=== PATIENT | female | born 1995 | race Asian ===

== ENCOUNTER 2018-10-31 22:51 | Inpatient (IN) | payer OTHER ==
[~2018-10-31] VITALS: Ht 162.6 cm; Wt 47.6 kg
--- NOTE | 2018-10-31 22:56 | NUR ---
ED Nurse Note: Pt EVELYN with [employer], from home for drug overdose. Pt took dicyclomine, tylenol and zofran in attempts to harm self after having argument with boyfriend. Pt A/Ox4, showing no signs of acute distress. VSS aside from hypotension with SBP of 81. Pt states she does not feel like harming self at the moment. Plan was to "take as many pills as possible".
[2018-10-31 22:57] VITALS: BP 81/55
[2018-10-31] MEDS ORDERED: Activated Charcoal 50gm/240ml Btl ORAL ONE (23:15)
[2018-10-31 23:21] LABS: BASOPHILS % (AUTO) 1.7 % (0.0-2.0); EOSINOPHILS % (AUTO) 1.6 % (0.0-3.0); HEMATOCRIT 38.4 % (37.0-47.0); HEMOGLOBIN 12.8 G/DL (12.0-16.0); LYMPHOCYTES % (AUTO) 42.9 % (20.0-45.0); MEAN CORPUSCULAR VOLUME 88 FL (80-99); NEUTROPHILS % (AUTO) 45.8 % (45.0-75.0); PLATELET COUNT 254 K/UL (150-450); RED BLOOD COUNT 4.37 M/UL (4.20-5.40); RED CELL DISTRIBUTION WIDTH 11.6 % (11.6-14.8); WHITE BLOOD COUNT 9.7 K/UL (4.8-10.8)
[2018-10-31 23:30] LABS: ANION GAP 12 mmol/L (5-15); BLOOD UREA NITROGEN 12 mg/dL (7-18); CALCIUM 8.6 MG/DL (8.5-10.1); CARBON DIOXIDE 21 MMOL/L (21-32); CHLORIDE 103 MMOL/L (98-107); CREATININE 0.7 MG/DL (0.55-1.30); POTASSIUM 3.3 MMOL/L (3.5-5.1); SODIUM 136 MMOL/L (136-145)
[2018-10-31 23:35] LABS: ALANINE AMINOTRANSFERASE 11 U/L (12-78); ALBUMIN 3.8 G/DL (3.4-5.0); ALKALINE PHOSPHATASE 58 U/L (46-116); ASPARTATE AMINO TRANSFERASE 20 U/L (15-37); BILIRUBIN,TOTAL 0.7 MG/DL (0.2-1.0)
[2018-11-01] MEDS ORDERED: ACETADOTE IVPB ONE ×4
[2018-11-01] MEDS ORDERED: D5W IVPB ONE ×4
--- NOTE | 2018-11-01 00:43 | NUR ---
ED Nurse Note: Pt resting comfortably. Showing no signs of acute distress. Acetadote 7500 mg running along with 2L NS.
[2018-11-01] MEDS: ACETADOTE IVPB ONE ×2 (01:23→04:44)
[2018-11-01] MEDS: D5W IVPB ONE ×2 (01:23→04:44)
--- NOTE | 2018-11-01 01:25 | NUR ---
ED Nurse Note: 2nd bag of acetadote started. Pt awake and alert. VSS.
[2018-11-01 01:34] LABS: APPEARANCE,URINE CLOUDY; BILIRUBIN, URINE NEGATIVE (NEGATIVE); COLOR,URINE RED; GLUCOSE, URINE (UA) NEGATIVE (NEGATIVE); KETONES,URINE 4+ (NEGATIVE); LEUKOCYTE ESTERASE ,URINE 2+ (NEGATIVE); NITRITE,URINE NEGATIVE (NEGATIVE); PH,URINE 5 (4.5-8.0); PROTEIN,URINE 3+ (NEGATIVE); UROBILINOGEN,URINE NORMAL MG/DL (0.0-1.0)
--- NOTE | 2018-11-01 01:58 | Emergency Room Report ---
History of Present Illness General Chief Complaint: Overdose Source: Patient Present Illness HPI This is a 23-year-old female presents with chief complaint of Tylenol overdose. She said that she's been depressed and felt suicidal. She took half a bottle of Tylenol around 6-7 PM tonight. This is around 3-4 hours prior to arrival. Denies any alcohol or drug use. Denies any homicidal thought. Denies any psychosis. She was talking to her boyfriend over the phone and he was concerned and called 911. No psychiatric history. No psychiatric admission. She had a recent elective 2 months ago. Allergies: Coded Allergies: No Known Allergies (Unverified , 10/31/18) Patient History Past Medical History: see triage record, old chart reviewed Past Surgical History: none Pertinent Family History: none Social History: Reports: smoking Last Menstrual Period: n/a Now: No Immunizations: other Reviewed Nursing Documentation: PMH: Agreed; PSxH: Agreed Review of Systems Eye: Denies: eye pain, blurred vision ENT: Denies: ear pain, nose congestion, throat swelling Respiratory: Denies: cough, shortness of breath Cardiovascular: Denies: chest pain, palpitations Gastrointestinal: Denies: abdominal pain, diarrhea, nausea, vomiting Musculoskeletal: Denies: back pain, joint pain Skin: Denies: rash Neurological: Denies: headache, numbness Endocrine: Denies: increased thirst, increased urine Hematologic/Lymphatic: Denies: easy bruising All Other Systems: negative except mentioned in HPI Physical Exam Vital Signs Date Time Temp Pulse Resp B/P (MAP) Pulse Ox O2 Delivery O2 Flow Rate FiO2 10/31/18 22:56 97.5 85 12 95 Room Air 10/31/18 22:57 81/55 vitals with hypotension. Manual blood pressure is 101/50 Sp02 EP Interpretation: reviewed, normal General Appearance: well appearing, no apparent distress, alert, thin Head: normocephalic, atraumatic Eyes: bilateral eye PERRL, bilateral eye EOMI ENT: hearing grossly normal, normal pharynx Neck: full range of motion, supple, no meningismus Respiratory: chest non-tender, lungs clear, normal breath sounds Cardiovascular #1: regular rate, rhythm, no murmur Gastrointestinal: normal bowel sounds, non tender, no mass, no organomegaly, no bruit, non-distended Musculoskeletal: back normal, gait/station normal, normal range of motion Psychiatric: depressed affect Skin: warm/dry Procedures Critical Care Time Critical Care Time Critical care is mandated in this patient who presented with Tylenol overdose. Patient require my urgent intervention to attenuate the risks of metabolic collapse which may lead to cardiovascular collapse and . Critical care time is 35 minutes excluding any reportable procedure. Critical care time included evaluation, multiple reevaluation, looking at old charts, interpreting laboratory and diagnostic data, discussing case with patient and family and consultants, and charting. Medical Decision Making Diagnostic Impression: Primary Impression: Tylenol overdose Qualified Codes: T39.1X2A - Poisoning by 4-aminophenol derivatives, intentional self-harm, initial encounter Additional Impression: UTI (urinary tract infection) Qualified Codes: N30.00 - Acute cystitis without hematuria ER Course Patient with Tylenol overdose. Unknown amount. Initial Tylenol level was elevated and potentially toxic. LFTs are normal. Second Tylenol level, 2 hours later, is trending downward. Mucomyst IV protocol is initiated. Patient is heme-negative police stable. Her blood pressure is low but manual blood pressure is on the low end of normal. I suspect this is her baseline since she is not tachycardic and has no evidence of hypoperfusion. She is talking normally. She sitting up and walking without any problem. Will admit for further monitoring. Discussed the case with Dr. Reyes for admission. Lab Results Impression labs with elevated Tylenol level EKG Diagnostic Results Rate: normal Rhythm: NSR ST Segments: no acute changes Rhythm Strip Diag. Results EP Interpretation: yes Rate: 100 Rhythm: NSR, no PVC's, no ectopy Last Vital Signs Date Time Temp Pulse Resp B/P (MAP) Pulse Ox O2 Delivery O2 Flow Rate FiO2 10/31/18 22:57 85 12 Room Air 10/31/18 22:57 97.5 81/55 95 Status: improved Disposition: ADMITTED INPATIENT Condition: Serious Referrals: NOT CHOSEN COLT/,REFERRING (PCP) Sanjiv Bagley MD November 01, 2018 01:58
[2018-11-01] MEDS ORDERED: cefTRIAXone 1 GM in NS 55 ML IVPB ONE (02:00)
--- NOTE | 2018-11-01 04:55 | NUR ---
ED Nurse Note: Pt transferred to Telemetry Unit. Report given CHIDI Carson. Pt A/Ox4, showing no signs of acute distress. Acetadote continuing to run through IV. IV patent and asymptomatic. VSS. All belongings taken with patient along with belongings list. Pt accompanied by shakila Preciado, and CHIDI.
[2018-11-01 05:00] VITALS: BP 105/70
--- NOTE | 2018-11-01 05:00 | NUR ---
NURSE NOTES: Received pt. from ED via sly. Pt. transferred to unit and bed without any incident. Received repot from CHIDI Reeder. Pt. is A/O x4. Oriented pt. to unit, room, and hospital policies. Pt. states that she is no longer feeling suicidal. 1x1 sitter at bedside. personnel monitor is in placed, IV site intact, asymptomatic, and patent. Bed is in the lowest position, locked, and alarmed. Call light within reach. Belongings list checked and accounted. Received admission orders from Dr. Reyes. Will note and carry out.
[2018-11-01 06:17] LABS: HEMATOCRIT 38.1 % (37.0-47.0); HEMOGLOBIN 12.7 G/DL (12.0-16.0); MEAN CORPUSCULAR VOLUME 87 FL (80-99); PLATELET COUNT 205 K/UL (150-450); RED BLOOD COUNT 4.37 M/UL (4.20-5.40); RED CELL DISTRIBUTION WIDTH 11.2 % (11.6-14.8); WHITE BLOOD COUNT 10.3 K/UL (4.8-10.8)
[2018-11-01 06:40] LABS: ALANINE AMINOTRANSFERASE 11 U/L (12-78); ALBUMIN 3.5 G/DL (3.4-5.0); ALKALINE PHOSPHATASE 51 U/L (46-116); ANION GAP 13 mmol/L (5-15); ASPARTATE AMINO TRANSFERASE 17 U/L (15-37); BILIRUBIN,TOTAL 0.6 MG/DL (0.2-1.0); BLOOD UREA NITROGEN 5 mg/dL (7-18); CALCIUM 7.9 MG/DL (8.5-10.1); CARBON DIOXIDE 21 MMOL/L (21-32); CHLORIDE 102 MMOL/L (98-107); CREATININE 0.7 MG/DL (0.55-1.30); POTASSIUM 3.4 MMOL/L (3.5-5.1); SODIUM 136 MMOL/L (136-145)
[2018-11-01 08:00] VITALS: BP 120/77
--- NOTE | 2018-11-01 08:12 | NUR ---
HAND-OFF: Report given to CHIDI Lord.
--- NOTE | 2018-11-01 08:20 | NUR ---
NURSE NOTES: Contacted Dr. Reyes regarding psych consult. Will await call back.
--- NOTE | 2018-11-01 08:45 | NUR ---
NURSE NOTES: Received report from CHIDI Carson. Pt is sitting up in bed with sitter at bedside. Bed is in lowest position, side rails up X2, and call light is within reach. Will continue to monitor.
--- NOTE | 2018-11-01 09:14 | General Progress Note ---
Assessment/Plan Problem List: (1) Tylenol overdose ICD Codes: T39.1X1A - Poisoning by 4-Aminophenol derivatives, accidental ( unintentional), initial encounter SNOMED: 545400695 Qualifiers: Qualified Codes: T39.1X2A - Poisoning by 4-aminophenol derivatives, intentional self-harm, initial encounter Assessment/Plan: no elevated lfts s/p mucomyst on reg diet fu psych Subjective ROS Limited/Unobtainable: Yes Allergies: Coded Allergies: No Known Allergies (Unverified , 10/31/18) Objective Last 24 Hour Vital Signs Date Time Temp Pulse Resp B/P (MAP) Pulse Ox O2 Delivery O2 Flow Rate FiO2 11/01/18 05:01 Room Air 11/01/18 05:00 97.8 95 18 105/70 (82) 100 11/01/18 05:00 99 11/01/18 04:55 98.3 94 26 90/56 99 10/31/18 22:57 85 12 Room Air 10/31/18 22:57 97.5 81 12 81/55 95 Room Air 10/31/18 22:56 97.5 85 12 95 Room Air Intake and Output 10/31/18 11/01/18 19:00 07:00 Intake Total 2292.5 ml Balance 2292.5 ml Intake IV Total 2292.5 ml # Voids 1 Laboratory Tests 10/31/18 23:00: White Blood Count 9.7, Red Blood Count 4.37, Hemoglobin 12.8, Hematocrit 38.4, Mean Corpuscular Volume 88, Mean Corpuscular Hemoglobin 29.2, Mean Corpuscular Hemoglobin Concent 33.3, Red Cell Distribution Width 11.6, Platelet Count 254, Mean Platelet Volume 8.7, Neutrophils (%) (Auto) 45.8, Lymphocytes (%) (Auto) 42.9, Monocytes (%) (Auto) 8.0, Eosinophils (%) (Auto) 1.6, Basophils (%) (Auto ) 1.7, Sodium Level 136, Potassium Level 3.3L, Chloride Level 103, Carbon Dioxide Level 21, Anion Gap 12, Blood Urea Nitrogen 12, Creatinine 0.7, Estimat Glomerular Filtration Rate > 60, Glucose Level 177H, Calcium Level 8.6, Total Bilirubin 0.7, Aspartate Amino Transf (AST/SGOT) 20, Alanine Aminotransferase ( ALT/SGPT) 11L, Alkaline Phosphatase 58, Total Protein 7.5, Albumin 3.8, Globulin 3.7, Albumin/Globulin Ratio 1.0, Salicylates Level 0.6L, Acetaminophen Level 177H, Serum Alcohol < 3 11/01/18 01:15: Urine Color Red, Urine Appearance Cloudy, Urine pH 5, Urine Specific [place] 1.025, Urine Protein 3+H, Urine Glucose (UA) Negative, Urine Ketones 4+H, Urine Blood 5+H, Urine Nitrite Negative, Urine Bilirubin Negative, Urine Urobilinogen Normal, Urine Leukocyte Esterase 2+H, Urine RBC TntcH, Urine WBC 5-10H, Urine Squamous Epithelial Cells Few, Urine Bacteria Few, Urine Mucus Occasional, Urine HCG, Qualitative Negative, Urine Opiates Screen Negative, Urine Barbiturates Screen Negative, Phencyclidine (PCP) Screen Negative, Urine Amphetamines Screen Negative, Urine Benzodiazepines Screen Negative, Urine Cocaine Screen Negative, Urine Marijuana (THC) Screen Negative 11/01/18 01:36: Acetaminophen Level 162H 11/01/18 06:10: White Blood Count 10.3, Red Blood Count 4.37, Hemoglobin 12.7, Hematocrit 38.1, Mean Corpuscular Volume 87, Mean Corpuscular Hemoglobin 29.2, Mean Corpuscular Hemoglobin Concent 33.4, Red Cell Distribution Width 11.2L, Platelet Count 205, Mean Platelet Volume 8.5, Neutrophils (%) (Auto) , Lymphocytes (%) (Auto) , Monocytes (%) (Auto) , Eosinophils (%) (Auto) , Basophils (%) (Auto) , Sodium Level 136, Potassium Level 3.4L, Chloride Level 102, Carbon Dioxide Level 21, Anion Gap 13, Blood Urea Nitrogen 5L, Creatinine 0.7, Estimat Glomerular Filtration Rate > 60, Glucose Level 157H, Calcium Level 7.9L, Total Bilirubin 0.6, Aspartate Amino Transf (AST/SGOT) 17, Alanine Aminotransferase (ALT/SGPT) 11L, Alkaline Phosphatase 51, Total Protein 7.1, Albumin 3.5, Globulin 3.6, Albumin/Globulin Ratio 1.0, Neutrophils % (Manual) [Pending], Lymphocytes % ( Manual) [Pending], Platelet Estimate [Pending], Platelet Morphology [Pending] Height (Feet): 5 Height (Inches): 4.00 Weight (Pounds): 105 General Appearance: alert EENT: normal ENT inspection Neck: supple Cardiovascular: normal rate Respiratory/Chest: lungs clear Abdomen: normal bowel sounds, non tender, soft Extremities: normal range of motion, non-tender Calos Clayton MD November 01, 2018 09:14
--- NOTE | 2018-11-01 10:30 | NUR ---
Social Service Note SW met with patient to assess for suicidal ideations. Patient is from [facility] and here on a student visa studying at [employer]. Patient is alert, oriented and verbally responsive. Patient stated she felt comfortable communicating in Kiswahili. Patient states has had multiple arguments with her boyfriend which has made her depressed. Patient states her boyfriends parents are not accepting of her because she is [place]. Also recently she had an because her boyfriend wouldn't support and she was ashamed to tell her family. Patient states she has been feeling emotional and acted out of haste yesterday. Patient denies mental health history. Patient denies suicidal ideations and feelings to self harm. Patient states her boyfriend called 911 after telling him she took Tylenol. Patient states she realizes this behavior will not help their relationship and that they might not need to be together any longer. SW provided emotional support. Patient states she notified her mother in [place] that she was in the hospital. Patient states she has international travellers insurance and also pays for medical assistance on campus. Mental Health resources will be provided. Patient is pending psychiatric evaluation. Patient states she will return to an apartment she shares with a roommate. Patient provided SW the contact number of a family friend Sameera Benavidez, . Will continue to monitor and assist as needed.
--- NOTE | 2018-11-01 10:39 | NUR ---
NURSE NOTES: Dr. Reyes asked that we consult Dr. Escobar for the case. Orders noted and carried out
--- NOTE | 2018-11-01 10:45 | Consultation ---
Consult Note Consult Note 23 y old- from [place] ER note- This is a 23-year-old female presents with chief complaint of Tylenol overdose. She said that she's been depressed and felt suicidal. She took half a bottle of Tylenol around 6-7 PM tonight. This is around 3-4 hours prior to arrival. Denies any alcohol or drug use. Denies any homicidal thought. Denies any psychosis. She was talking to her boyfriend over the phone and he was concerned and called 911. No psychiatric history. No psychiatric admission. She had a recent elective 2 months ago. Allergies: Coded Allergies: No Known Allergies (Unverified , 10/31/18) examined data reviewed alert oriented NAD Assessment/Plan Tylenol OD UTI no elevated LFTs Per Psych Monitor LFTs Hydrate Monitor tylenol level per orders Jeremy Saini MD November 01, 2018 10:45
[2018-11-01 12:00] VITALS: BP 126/80
[2018-11-01] MEDS: Docusate 100mg cap ORAL SCH ×2 (13:21→17:31)
--- NOTE | 2018-11-01 15:33 | NUR ---
CASE MANAGEMENT:REVIEW 23 YR OLD FEMALE BIBA FROM HOME CC; OVERDOSE OF TYLENOL,DICYCLOMINE AND ZOFRAN SI: TYLENOL OVERDOSE. UTI 97.5 85 12 81/55 95% ON RA K-3.3 TYLENOL LEVEL+177 IS: IV ZOFRAN ACTIVATED CHARCOAL IV ACETADOTE X2 IV ROCEPHIN 1L NS BOLUS X2 : TO TELEMETRY INTERQUAL CRITERIA MET
[2018-11-01 16:00] VITALS: BP 121/80
--- NOTE | 2018-11-01 17:30 | Cardiology Report ---
APPROVED REPORT EKG Measurement Heart [id number] HI [id number] Normal sinus rhythm Possible Left atrial enlargement Borderline ECG
--- NOTE | 2018-11-01 19:28 | NUR ---
HAND-OFF: Report given to CHIDI Hurley. Plan of care endorsed.
--- NOTE | 2018-11-01 19:36 | NUR ---
NURSE NOTES: patient received. patient in no acute distress at this time. patient complains of no pain at this time. patietn awake alert and oriented x4. family and sitter at bedside. IV intact patent and asymptomatic. patient ambulatory with steady gait. bed in lowest position and locked. call light within reach. will continue to monitor.
[2018-11-01 20:00] VITALS: BP 102/70
[2018-11-02] VITALS (7 sets, daily range): BP systolic 88–109; BP diastolic 57–69
--- NOTE | 2018-11-02 03:35 | NUR ---
NURSE NOTES: sitter at bed side. patient is resting. patient vitals are stable and patient is sinus rhythm. patient IV still running D5NS with KCL. patient stable and ambulates to the bathroom. will continue to monitor.
--- NOTE | 2018-11-02 05:00 | History and Physical Report ---
DATE OF ADMISSION: 11/01/2018 HISTORY OF PRESENT ILLNESS: The patient is a 23-year-old female admitted for Tylenol overdose. She reported that she took about 50 pills last night and does not know the dosages for the intention of overdose. LFTs were normal, 4-hour level was 157, 6-hour level was 162. The patient was started on Mucomyst protocol by the ER physician. The patient currently denies nausea, vomiting, diarrhea, fever, chills, or abdominal pain. No shortness of breath or cough. PAST MEDICAL HISTORY: History of depression. PAST SURGICAL HISTORY: None. ALLERGIES: None. MEDICATIONS: None. FAMILY HISTORY: Noncontributory. SOCIAL HISTORY: No history of smoking, alcohol, or illicit drugs. REVIEW OF SYSTEMS: HEENT: Denies headaches. RESPIRATORY: Denies shortness of breath. Denies cough. CARDIOVASCULAR: Denies chest pain. GASTROINTESTINAL: Denies nausea, vomiting, or diarrhea. EXTREMITIES: Denies pain. CENTRAL NERVOUS SYSTEM: Denies change in vision or speech pattern. PHYSICAL EXAMINATION: VITAL SIGNS: Temperature 97.2, pulse , and blood pressure 130/70. HEENT: PERRLA. NECK: Supple. No lymphadenopathy. CHEST: Clear to auscultation. CARDIOVASCULAR: Regular rate and rhythm. No murmurs at this time. GASTROINTESTINAL: Soft, nontender,and nondistended. No organomegaly. EXTREMITIES: No edema. Reflexes in both sides. Moves all four extremities. LABORATORY STUDIES: WBC of 9.7 and hemoglobin . Sodium 137, potassium 3.3, BUN of 12, creatinine 0.7, and glucose of 177. Tylenol level initially was 177, repeat level went down to 62. . ASSESSMENT AND PLAN: Tylenol overdose, one-to-one sitter has been ordered as well as Dr. Saini, Dr. Escobar, and Dr. Isabel have been consulted for the Tylenol overdose to rule out any other abnormality as well as for management of the and Dr. Escobar for the depression and overdose has been consulted and been ordered. Katie Reyes M.D. DR: GRIFFIN JOB#: [id number] CC:
--- NOTE | 2018-11-02 05:00 | Consultation ---
DATE OF CONSULTATION: 11/01/2018 HISTORY OF PRESENT ILLNESS: The patient is a 23-year-old [place] woman who has no psychiatric history according to herself, was admitted last night after she overdosed on Tylenol. The suicide attempt was in the context of an she just had. and breakup with her boyfriend. The patient denies any suicidal ideation. The patient states that now she is not endorsing any suicidal ideation. She believes her family and friends do care for her. The patient goes to [employer] and has a roommate. Target symptoms include depressed mood, worthlessness, anxiety. No suicidal or homicidal ideations. No psychotic or manic symptoms. PAST PSYCHIATRIC HISTORY: The patient denies any psychiatric hospitalization. No suicide attempt. PAST MEDICAL HISTORY: None. She is currently status post Tylenol overdose and UTI. SUBSTANCE ABUSE HISTORY: No history of illicit drug use or alcohol. MENTAL STATUS EXAMINATION: The patient is alert and oriented times self, place, and situation she is in. Mood is depressed. Affect is constricted. Congruent mood. Thought process linear. Thought content, no suicidal or homicidal ideation. No psychotic symptoms. ASSESSMENT: AXIS I: Adjustment disorder. AXIS II: Deferred. AXIS III: As above. AXIS IV: Low. AXIS V: 50. PLAN: 1. We will start the patient on Remeron as needed for insomnia. 2. Start the patient on Zoloft 50 mg in the morning. 3. the patient is not imminent danger to self or others. The patient may be discharged home after medically cleared. Estefany Escobar M.D. DR: Carissa JOB#: [id number] CC:
[2018-11-02 06:22] LABS: BASOPHILS % (AUTO) 1.7 % (0.0-2.0); EOSINOPHILS % (AUTO) 1.8 % (0.0-3.0); HEMATOCRIT 35.3 % (37.0-47.0); HEMOGLOBIN 11.8 G/DL (12.0-16.0); LYMPHOCYTES % (AUTO) 39.6 % (20.0-45.0); MEAN CORPUSCULAR VOLUME 88 FL (80-99); MONOCYTES % (AUTO) 7.7 % (1.0-10.0); NEUTROPHILS % (AUTO) 49.2 % (45.0-75.0); PLATELET COUNT 205 K/UL (150-450); RED CELL DISTRIBUTION WIDTH 11.9 % (11.6-14.8); WHITE BLOOD COUNT 6.4 K/UL (4.8-10.8)
--- NOTE | 2018-11-02 06:30 | NUR ---
NURSE NOTES: patients blood pressure a little low. we sat patient up. charge nurse informed. will recheck in half hour.
[2018-11-02 06:39] LABS: ALANINE AMINOTRANSFERASE 10 U/L (12-78); ALBUMIN 3.1 G/DL (3.4-5.0); ALKALINE PHOSPHATASE 56 U/L (46-116); ANION GAP 8 mmol/L (5-15); ASPARTATE AMINO TRANSFERASE 14 U/L (15-37); BILIRUBIN,TOTAL 0.2 MG/DL (0.2-1.0); BLOOD UREA NITROGEN 4 mg/dL (7-18); CALCIUM 8.3 MG/DL (8.5-10.1); CARBON DIOXIDE 25 MMOL/L (21-32); CHLORIDE 111 MMOL/L (98-107); CREATININE 0.7 MG/DL (0.55-1.30); GAMMA GLUTAMYL TRANSPEPTIDASE 9 U/L (5-85); PHOSPHORUS 2.8 MG/DL (2.5-4.9); POTASSIUM 3.6 MMOL/L (3.5-5.1); SODIUM 144 MMOL/L (136-145)
--- NOTE | 2018-11-02 07:00 | NUR ---
NURSE NOTES: patients blood pressure rechecked and is trending upwards. informed day shift nurse and charge nurse aware. sitter at bedside.
--- NOTE | 2018-11-02 07:05 | NUR ---
HAND-OFF: Report given to marixa meyer. patient vitals and labs stable.
--- NOTE | 2018-11-02 07:23 | NUR ---
NURSE NOTES: Received report from CHIDI Fuentes. Pt is sitting up in bed. Sitter is at bedside. Contacted Dr. Reyes for clarification of orders for sitter. Bed is in lowest position, side rails up X2, and call light is within reach. Will continue to monitor.
--- NOTE | 2018-11-02 08:17 | NUR ---
NURSE NOTES: I spoke with patient about how she is feelings. She started crying and stated that her boyfriend broke up with her last night. I asked her if she wanted to hurt herself. She said "no, I don't". Contacted Dr. Escobar to inform her what i discussed with the sitter and that I believe she should remain with sitter as she still appears sad and distant. Dr. Escobar asked if pt was suicidal? I informed her that patient said "no" but that the patient appeared to be sad. Per Dr. Escobar, pt is stable and not suicidal. "okay" to DC sitter. Informed Charge Nurse of DC order.
[2018-11-02] MEDS: Sertraline 50mg tab ORAL SCH (09:00)
[2018-11-02] MEDS: Docusate 100mg cap ORAL SCH ×3 (09:00→17:03)
--- NOTE | 2018-11-02 09:25 | General Progress Note ---
Assessment/Plan Problem List: (1) Tylenol overdose ICD Codes: T39.1X1A - Poisoning by 4-Aminophenol derivatives, accidental ( unintentional), initial encounter SNOMED: [id number] Qualifiers: Qualified Codes: T39.1X2A - Poisoning by 4-aminophenol derivatives, intentional self-harm, initial encounter Assessment/Plan: no elevated lfts s/p Mucomyst on reg diet fu psych Subjective ROS Limited/Unobtainable: Yes Allergies: Coded Allergies: No Known Allergies (Unverified , 10/31/18) Objective Last 24 Hour Vital Signs Date Time Temp Pulse Resp B/P (MAP) Pulse Ox O2 Delivery O2 Flow Rate FiO2 11/02/18 08:00 97.3 71 22 92/59 (70) 11/02/18 08:00 87 11/02/18 06:59 93/59 (70) 11/02/18 06:00 97.4 70 18 88/57 (67) 98 11/02/18 04:00 67 11/02/18 00:00 97.2 88 18 103/68 (80) 98 11/02/18 00:00 72 11/01/18 21:00 Room Air 11/01/18 20:00 98.9 82 18 102/70 (81) 97 11/01/18 20:00 81 11/01/18 16:00 74 11/01/18 16:00 98.0 90 18 121/80 (94) 96 11/01/18 12:00 98.7 82 18 126/80 (95) 96 11/01/18 12:00 62 Intake and Output 11/01/18 11/02/18 18:59 06:59 Intake Total 1000 ml 300 ml Balance 1000 ml 300 ml Intake Oral 1000 ml 300 ml # Voids 5 # Bowel Movements 1 1 Laboratory Tests 11/02/18 05:50: White Blood Count 6.4, Red Blood Count 4.00L, Hemoglobin 11.8L, Hematocrit 35.3L , Mean Corpuscular Volume 88, Mean Corpuscular Hemoglobin 29.6, Mean Corpuscular Hemoglobin Concent 33.5, Red Cell Distribution Width 11.9, Platelet Count 205, Mean Platelet Volume 9.5, Neutrophils (%) (Auto) 49.2, Lymphocytes (% ) (Auto) 39.6, Monocytes (%) (Auto) 7.7, Eosinophils (%) (Auto) 1.8, Basophils ( %) (Auto) 1.7, Sodium Level 144, Potassium Level 3.6, Chloride Level 111H, Carbon Dioxide Level 25, Anion Gap 8, Blood Urea Nitrogen 4L, Creatinine 0.7, Estimat Glomerular Filtration Rate > 60, Glucose Level 105, Uric Acid 2.5L, Calcium Level 8.3L, Phosphorus Level 2.8, Magnesium Level 2.0, Total Bilirubin 0.2, Gamma Glutamyl Transpeptidase 9, Aspartate Amino Transf (AST/SGOT) 14L, Alanine Aminotransferase (ALT/SGPT) 10L, Alkaline Phosphatase 56, Total Protein 6.3L, Albumin 3.1L, Globulin 3.2, Albumin/Globulin Ratio 1.0, Acetaminophen Level < 2L Height (Feet): 5 Height (Inches): 4.00 Weight (Pounds): 105 General Appearance: alert Neck: supple Cardiovascular: normal rate Respiratory/Chest: decreased breath sounds Abdomen: normal bowel sounds, non tender, soft Extremities: non-tender Calos Clayton MD November 02, 2018 09:25
--- NOTE | 2018-11-02 12:27 | NUR ---
CASE MANAGEMENT:REVIEW 11/02/18 SI: OVERDOSE 97.3 71 22 92/59 98% ON RA IS: IVF@75/HR ZOLOFT PO QD PROTONIX PO Q12 COLACE PO TID : TELEMETRY STATUS
--- NOTE | 2018-11-02 13:15 | NUR ---
RD ASSESSMENT & RECOMMENDATIONS SEE CARE ACTIVITY FOR COMPLETE ASSESSMENT DAILY ESTIMATED NEEDS: Needs based on Underweight 47.6kg 25-35 kcals/kg 1056-2291 total kcals .8-1.2 g protein/kg 48-57 g total protein 25-30 mL/kg 9499-9188 total fluid mLs NUTRITION DIAGNOSIS: Increased kcal needs r/t underweight status as evidenced by pt is <90% of [place] body Weight, BMI underweight per guidelines. CURRENT DIET: Regular ms chopped PO DIET RECOMMENDATIONS: REGULAR diet (texture per [employer]) ----- ADDITIONAL RECOMMENDATIONS: 1) Obtain a standing Ht and Wt as able 2) [employer] eval for appropriate texture -> Currently on MS chopped texture 3) Monitor/ trend BG -> adm w/ elev BG 4) Snacks in b/w meals
--- NOTE | 2018-11-02 14:58 | Nephrology Progress Note ---
Assessment/Plan Problem List: (1) UTI (urinary tract infection) (2) Tylenol overdose Assessment Tylenol OD levels now below 2 UTI no elevated LFTs Plan Per Psych stable from my stand for DC will follow as needed urine cultures pending Subjective ROS Limited/Unobtainable: No Objective Objective Last 24 Hour Vital Signs Date Time Temp Pulse Resp B/P (MAP) Pulse Ox O2 Delivery O2 Flow Rate FiO2 11/02/18 12:00 97.9 68 21 109/64 (79) 11/02/18 12:00 74 11/02/18 09:00 Room Air 11/02/18 08:00 97.3 71 22 92/59 (70) 11/02/18 08:00 87 11/02/18 06:59 93/59 (70) 11/02/18 06:00 97.4 70 18 88/57 (67) 98 11/02/18 04:00 67 11/02/18 00:00 97.2 88 18 103/68 (80) 98 11/02/18 00:00 72 11/01/18 21:00 Room Air 11/01/18 20:00 98.9 82 18 102/70 (81) 97 11/01/18 20:00 81 11/01/18 16:00 74 11/01/18 16:00 98.0 90 18 121/80 (94) 96 Intake and Output 11/01/18 11/02/18 19:00 07:00 Intake Total 1000 ml 300 ml Balance 1000 ml 300 ml Intake Oral 1000 ml 300 ml # Voids 5 # Bowel Movements 1 1 Laboratory Tests 11/02/18 05:50: White Blood Count 6.4, Red Blood Count 4.00L, Hemoglobin 11.8L, Hematocrit 35.3L , Mean Corpuscular Volume 88, Mean Corpuscular Hemoglobin 29.6, Mean Corpuscular Hemoglobin Concent 33.5, Red Cell Distribution Width 11.9, Platelet Count 205, Mean Platelet Volume 9.5, Neutrophils (%) (Auto) 49.2, Lymphocytes (% ) (Auto) 39.6, Monocytes (%) (Auto) 7.7, Eosinophils (%) (Auto) 1.8, Basophils ( %) (Auto) 1.7, Sodium Level 144, Potassium Level 3.6, Chloride Level 111H, Carbon Dioxide Level 25, Anion Gap 8, Blood Urea Nitrogen 4L, Creatinine 0.7, Estimat Glomerular Filtration Rate > 60, Glucose Level 105, Uric Acid 2.5L, Calcium Level 8.3L, Phosphorus Level 2.8, Magnesium Level 2.0, Total Bilirubin 0.2, Gamma Glutamyl Transpeptidase 9, Aspartate Amino Transf (AST/SGOT) 14L, Alanine Aminotransferase (ALT/SGPT) 10L, Alkaline Phosphatase 56, Total Protein 6.3L, Albumin 3.1L, Globulin 3.2, Albumin/Globulin Ratio 1.0, Acetaminophen Level < 2L Height (Feet): 5 Height (Inches): 4.00 Weight (Pounds): 105 General Appearance: no apparent distress Objective wnl Jeermy Saini MD November 02, 2018 14:58
--- NOTE | 2018-11-02 16:17 | NUR ---
*-* INSURANCE *-* ALL CLINICALS AND REVIEWS HAVE BEEN FAXED TO: [facility] F:[phone]
--- NOTE | 2018-11-02 19:15 | NUR ---
NURSE NOTES: Pt report received from Risa MURILLO. pt appears to be in stable condition as she is resting comfortably in bed using her lap top. Pt is alert and oriented times 4. Pt has a classroom monitor placed active active and working. no signs or symptoms of acute cardiac distress noted. Pt is saturating at 99% on room air. no signs or symptoms of acute respiratory distress noted. Pt has a R AC 20 G able to flush with no complications noted. Pt is instructed to use the call light for any type of assistance. Pt has side rails up times 2. [employer] TEAM LEADER and RN will make hourly roundings to monitor for further complications. Will continue plan of care.
--- NOTE | 2018-11-02 19:41 | NUR ---
HAND-OFF: Report given to marixa Sherman. Plan of care endosed.
--- NOTE | 2018-11-02 21:20 | General Progress Note ---
Assessment/Plan Problem List: (1) Tylenol overdose ICD Codes: T39.1X1A - Poisoning by 4-Aminophenol derivatives, accidental ( unintentional), initial encounter SNOMED: 229356113 Qualifiers: Qualified Codes: T39.1X2A - Poisoning by 4-aminophenol derivatives, intentional self-harm, initial encounter Status: progressing Assessment/Plan: suicide attempt tylenol o/d Subjective ROS Limited/Unobtainable: Yes Allergies: Coded Allergies: No Known Allergies (Unverified , 10/31/18) Objective Last 24 Hour Vital Signs Date Time Temp Pulse Resp B/P (MAP) Pulse Ox O2 Delivery O2 Flow Rate FiO2 11/02/18 16:00 98.1 76 18 109/59 (76) 11/02/18 16:00 79 11/02/18 12:00 97.9 68 21 109/64 (79) 11/02/18 12:00 74 11/02/18 09:00 Room Air 11/02/18 08:00 97.3 71 22 92/59 (70) 11/02/18 08:00 87 11/02/18 06:59 93/59 (70) 11/02/18 06:00 97.4 70 18 88/57 (67) 98 11/02/18 04:00 67 11/02/18 00:00 97.2 88 18 103/68 (80) 98 11/02/18 00:00 72 Intake and Output 11/01/18 11/02/18 19:00 07:00 Intake Total 1000 ml 300 ml Balance 1000 ml 300 ml Intake Oral 1000 ml 300 ml # Voids 5 # Bowel Movements 1 1 Laboratory Tests 11/02/18 05:50: White Blood Count 6.4, Red Blood Count 4.00L, Hemoglobin 11.8L, Hematocrit 35.3L , Mean Corpuscular Volume 88, Mean Corpuscular Hemoglobin 29.6, Mean Corpuscular Hemoglobin Concent 33.5, Red Cell Distribution Width 11.9, Platelet Count 205, Mean Platelet Volume 9.5, Neutrophils (%) (Auto) 49.2, Lymphocytes (% ) (Auto) 39.6, Monocytes (%) (Auto) 7.7, Eosinophils (%) (Auto) 1.8, Basophils ( %) (Auto) 1.7, Sodium Level 144, Potassium Level 3.6, Chloride Level 111H, Carbon Dioxide Level 25, Anion Gap 8, Blood Urea Nitrogen 4L, Creatinine 0.7, Estimat Glomerular Filtration Rate > 60, Glucose Level 105, Uric Acid 2.5L, Calcium Level 8.3L, Phosphorus Level 2.8, Magnesium Level 2.0, Total Bilirubin 0.2, Gamma Glutamyl Transpeptidase 9, Aspartate Amino Transf (AST/SGOT) 14L, Alanine Aminotransferase (ALT/SGPT) 10L, Alkaline Phosphatase 56, Total Protein 6.3L, Albumin 3.1L, Globulin 3.2, Albumin/Globulin Ratio 1.0, Acetaminophen Level < 2L Height (Feet): 5 Height (Inches): 4.00 Weight (Pounds): 105 Cardiovascular: normal rate Respiratory/Chest: lungs clear Abdomen: soft Katie Reyes MD November 02, 2018 21:20
--- NOTE | 2018-11-02 23:00 | Progress Note ---
DATE: 11/02/2018 SUBJECTIVE: The patient is doing well. The patient was tearful today as her ex-boyfriend came to the hospital and officially broke out with her. The patient is not endorsing any suicidal or homicidal ideation. The patient would like to be discharged home and is reluctant to go to a psychiatric facility. The patient has a good support system outside of the hospital. She is not an imminent danger to self or others. The patient stated that she did not take the Tylenol to end her life. The patient was discussed about getting professional help and see a psychologist after the discharge. She is reluctant to see a psychiatrist or take psychotropic medications. She does not believe that she has mental illness. We discussed borderline personality. MENTAL STATUS EXAMINATION: The patient is alert and oriented x4, cooperative, calmer today. No psychomotor agitation or retardation. Mood is neutral. Affect is blunted, congruent with mood. Thought content, no suicidal or homicidal ideation. Insight and judgment is fair. ASSESSMENT: AXIS I: Adjustment disorder. AXIS II: Borderline personality traits. AXIS III: Status post Tylenol overdose. AXIS IV: Low to moderate. AXIS V: 50. PLAN: The patient may be discharged after medically cleared. The patient is not an imminent danger to self or others. The patient is reluctant to take any psychotropic medication. Referral to mental health was given. Estefany Escobar M.D. DR: Carissa JOB#: [id number] CC:
[2018-11-03] VITALS: BP 103/64
[2018-11-03 04:00] VITALS: BP 104/61
--- NOTE | 2018-11-03 07:30 | NUR ---
HAND-OFF: Report given to Namita MURILLO.
--- NOTE | 2018-11-03 07:35 | NUR ---
NURSE NOTES: MD Doss called, stated to have PT DC when MD Escobar and MD Nix clear Pt. DC [facility], Continue Home Meds.
--- NOTE | 2018-11-03 07:50 | NUR ---
NURSE NOTES: Report received from CHIDI Sherman. Observed patient in bed. Awake and verbally responsive. Denies pain at this time. No distress noted in room air. IV site intact and patent. Bed in lowest position. Call light within reach. Will continue to monitor.
[2018-11-03 08:00] VITALS: BP 95/61
[2018-11-03] MEDS: Docusate 100mg cap ORAL SCH ×2 (08:27→13:00)
[2018-11-03] MEDS: Sertraline 50mg tab ORAL SCH (08:27)
--- NOTE | 2018-11-03 09:03 | NUR ---
CASE MANAGEMENT:REVIEW 11/03/18 SI: OVERDOSE 98.8 83 20 95/61 100% ON RA IS: ZOLOFT PO QD PROTONIX PO Q12 COLACE PO TID : TELEMETRY STATUS DCP: FROM HOME PLAN: DISCHARGE IF CLEARED BY PSYCH AND CARDIO CONTINUE HOSPITAL MEDS UPON DISCHARGE
--- NOTE | 2018-11-03 09:29 | NUR ---
*-* INSURANCE *-* UPDATED CLINICALS REVIEWS HAVE BEEN FAXED TO: [facility] F:[phone]
--- NOTE | 2018-11-03 09:37 | GI Progress Note ---
Assessment/Plan Problems: (1) Tylenol overdose ICD Codes: T39.1X1A - Poisoning by 4-Aminophenol derivatives, accidental ( unintentional), initial encounter SNOMED: [id number] Qualifiers: Qualified Codes: T39.1X2A - Poisoning by 4-aminophenol derivatives, intentional self-harm, initial encounter Status: stable Status Narrative Discussed with Dr. Clayton Assessment/Plan okay for DC per GI standpoint no elevated lfts s/p Mucomyst on reg diet fu psych The patient was seen and examined at bedside and all new and available data was reviewed in the patients chart. I agree with the above findings, impression and plan. (Patient seen earlier today. Signature stamp does not reflect patient encounter time.). - Calos Clayton MD Subjective Gastrointestinal/Abdominal: Reports: no symptoms Subjective Denies any abdominal pain Denies any nausea vomiting Objective Last 24 Hour Vital Signs Date Time Temp Pulse Resp B/P (MAP) Pulse Ox O2 Delivery O2 Flow Rate FiO2 11/03/18 09:00 Room Air 11/03/18 08:00 98.8 83 20 95/61 (72) 100 11/03/18 04:00 61 11/03/18 04:00 98.1 75 18 104/61 (75) 99 11/03/18 00:00 98.5 69 18 103/64 (77) 99 11/03/18 00:00 86 11/02/18 21:00 Room Air 11/02/18 20:00 85 11/02/18 20:00 97.9 76 18 108/69 (82) 99 11/02/18 16:00 98.1 76 18 109/59 (76) 11/02/18 16:00 79 11/02/18 12:00 97.9 68 21 109/64 (79) 11/02/18 12:00 74 Intake and Output 11/02/18 11/03/18 18:59 06:59 # Voids 2 # Bowel Movements 1 1 Height (Feet): 5 Height (Inches): 4.00 Weight (Pounds): 105 General Appearance: WD/WN, no apparent distress, alert Cardiovascular: normal rate Respiratory/Chest: normal breath sounds, no respiratory distress Abdominal Exam: normal bowel sounds, non tender, soft Extremities: normal range of motion, non-tender Robert Bagley HEAD FILTER TANK TENDER HELPER November 03, 2018 09:36
--- NOTE | 2018-11-03 11:39 | Cardiac Electrophysiology PN ---
Subjective Subjective [id number] Objective Last 24 Hour Vital Signs Date Time Temp Pulse Resp B/P (MAP) Pulse Ox O2 Delivery O2 Flow Rate FiO2 11/03/18 09:00 Room Air 11/03/18 08:00 83 11/03/18 08:00 98.8 83 20 95/61 (72) 100 11/03/18 04:00 61 11/03/18 04:00 98.1 75 18 104/61 (75) 99 11/03/18 00:00 98.5 69 18 103/64 (77) 99 11/03/18 00:00 86 11/02/18 21:00 Room Air 11/02/18 20:00 85 11/02/18 20:00 97.9 76 18 108/69 (82) 99 11/02/18 16:00 98.1 76 18 109/59 (76) 11/02/18 16:00 79 11/02/18 12:00 97.9 68 21 109/64 (79) 11/02/18 12:00 74 Intake and Output 11/02/18 11/03/18 18:59 06:59 # Voids 2 # Bowel Movements 1 1 Hayden Nix MD November 03, 2018 11:39
[2018-11-03 11:50] VITALS: BP 103/64
--- NOTE | 2018-11-03 13:19 | NUR ---
NURSE NOTES: Patient discharged to home via private vehicle by herself. Patient is alert and oriented x 4 and verbally responsive. Denies pain at this time. Belongings checked with patient. No skin problems noted. All discharge instructions given to patient with verbalized understanding. patient care specialist, IV site, and ID band removed prior to discharge. Patient is ambulatory with steady gait. Escorted the patient to down stairs. Stable condition.
--- NOTE | 2018-11-03 18:45 | Consultation ---
DATE OF CONSULTATION: 11/03/2018 CARDIOLOGY CONSULTATION: CONSULTING PHYSICIAN: Hayden Nix M.D. REFERRING PHYSICIAN: Katie Reyes M.D. REASON FOR CONSULTATION: Episodes of Wenckebach. HISTORY OF PRESENT ILLNESS: The patient is a 23-year-old lady who was depressed and felt suicidal and had a half bottle of Tylenol around 6 or 7 p.m. This was 3 to 4 hours prior to arrival. She was talking to her boyfriend over the phone and he got concerned and called 911. There is no prior history of psychiatric history and had an elective 2 months ago. The patient was admitted on telemetry, had episodes of bradycardia due to Mobitz type 1 Wenckebach. Cardiac electrophysiology consultation for further evaluation and management. REVIEW OF SYSTEMS: Negative other than what was mentioned in history of present illness. PAST MEDICAL HISTORY: As mentioned above. FAMILY HISTORY: Noncontributory. SOCIAL HISTORY: She lives at home. Does not smoke or drink alcohol. PHYSICAL EXAMINATION: VITAL SIGNS: Blood pressure is 95/61, pulse 83, respirations 18, temperature 98.8. HEAD AND NECK: Showed no JVD or carotid bruit. LUNGS: Clear. CARDIOVASCULAR: Regular S1 and S2 with no gallop or murmur. ABDOMEN: Soft. EXTREMITIES: There is no pitting edema. LABORATORY AND DIAGNOSTIC DATA: Her telemetry strip showed that around 4:30 in the morning, the patient developed second-degree type 1 AV block, Wenckebach. A 12-lead EKG this morning showed normal sinus rhythm, completely normal electrocardiogram. Her labs show white count of 6.4, hemoglobin 11.8, hematocrit 35.3, and platelet count 205. Sodium 144, potassium 3.3, BUN of 4, creatinine 0.7, glucose of 105. Toxicology showed a Tylenol level of 177 initially and then today is less than 2. ASSESSMENT AND PLAN: 1. This is the Wenckebach. This happened only at 4:30 a.m. while she was sleeping. The EKG this morning is completely normal. It could have been precipitated by the patient's Tylenol overdose. The patient's echocardiogram today also showed normal left ventricular systolic function. The patient has no prior cardiac history and is stable from cardiac standpoint to be discharged. 2. Urinary tract infection. 3. Depression, on Zoloft and Remeron. Thank you very much for allowing me to participate in the care of this patient. Please do not hesitate to contact me for any questions regarding my evaluation. Hayden Nix M.D. DR: MYRA JOB#: [id number] CC:
--- NOTE | 2018-11-03 23:45 | Progress Note ---
DATE: 11/03/2018 SUBJECTIVE: The patient is doing well. Calm. No behavior issues. Presents with anxiety. No depressive symptoms. Mood is improved. The patient is not endorsing any suicidal or homicidal ideation. MENTAL STATUS EXAMINATION: Alert, oriented x4. Cooperative, calm, pleasant. Mood is neutral. Affect is full range. Thought process, there is a paucity of thought content. Thought content, no suicidal or homicidal ideation. ASSESSMENT: Borderline trait, adjustment disorder. PLAN: The patient will be continued on current medication. Provide the patient with reality orientation and supportive therapy. Estefany Escobar M.D. DR: FABRICIO JOB#: [id number] CC:
--- NOTE | 2018-11-05 21:03 | Discharge Summary ---
Discharge Summary Discharge Summary _ DATE OF ADMISSION: 11/01/2018 DATE OF DISCHARGE: 11/03/2018 DISCHARGED BY: Dr Reyes REASON FOR ADMISSION: 23 years old female presented to ED for Tylenol overdose. Patient took half a bottle of Tylenol and Tylenol about 3 -4 hours prior to arrival. Patient reported being depressed and felt suicidal. Patient denied alcohol and drug use . Patient denied any homicidal thoughts or psychosis. She had no psychiatric history. She reported recent elective 2 months ago. Upon evaluation in the emergency department blood pressure was low 81/55 Laboratory work-up revealed no leukocytosis, stable hemoglobin and hematocrit. Potassium 3.3. Other electrolytes stable . Stable renal parameters Stable LFT. Urinalysis with pyuria, but few bacteria . Urine test negative. Tylenol level 177 . Urine toxicology screen negative . Alcohol and salicylate level negative . Patient admitted for further management for Tylenol overdose. CONSULTANTS: binder lockstitch Dr. Paniagua GI specialist Dr. Clayton drier transfer car operator Dr. Saini psychiatrist [facility]: Patient admitted to monitored floor. Patient received Mucomyst . LFT remained stable. Tylenol level was trended , prior to discharge less than 2. Diet was advanced as tolerated. Patient was able to tolerate diet . Symptomatic treatment provided as needed . Potassium replaced. Electrolytes were further closely monitored and replaced as needed. Patient noted to have on telemetry Mobitz type I AV block . Cardiac electrophysiology consultation was requested for further evaluation and management . Second degree AV block Mobitz Type 1 happened in the laboratory equipment cleaner , when patient was sleeping . Afterwards the EKG was completely normal. Per binder lockstitch, Mobitz type I AV block was possibly precipitated by Tylenol overdose . The patient had no prior cardiac history. Echocardiogram revealed preserved ejection fraction. Patuietn received dose of antibiotic in emergency department for possible UTI. Patient remained afebrile, no leukocytosis, no urinary complaints. No further treatment for UTI provided, likely asymptomatic bacteriuria. Psychiatrist followed and diagnosed patient with borderline trait, adjustment disorder. Patient was continued on current medication regimen: Remeron and Zoloft. Reality orientation and supportive therapy provided. Patient clinically stabilized. Patient was able to tolerate diet. Stable LFT . Tylenol level down to less than 2 .No suicidal thoughts. Patient was stable for discharge FINAL DIAGNOSES: Tylenol overdose Second degree AV block, Mobitz Type 1- transient Depression Borderline trait, adjustment disorder DISCHARGE MEDICATIONS: See Medication Reconciliation list. DISCHARGE INSTRUCTIONS: Patient was discharged home Follow up with primary care provider in one week. I have been assigned to dictate discharge summary for this account. I was not involved in the patient's management. Soumya Nagel NP November 05, 2018 21:03
--- NOTE | 2018-11-06 19:46 | Cardiology Report ---
APPROVED REPORT EKG Measurement Heart [id number] Normal sinus rhythm Normal ECG
--- NOTE | 2018-11-06 20:22 | Cardiology Report ---
APPROVED REPORT EXAM: Two-dimensional and M-mode echocardiogram with Doppler and color Doppler. INDICATION Ejection Fraction M-Mode DIMENSIONS IVSd0.7 (0.7-1.1cm)Left Atrium (MM)2.3 (1.6-4.0cm) LVDd3.5 (3.5-5.6cm)Aortic Root2.3 (2.0-3.7cm) PWd0.7 (0.7-1.1cm)Aortic Cusp Exc.1.9 (1.5-2.0cm) LVDs2.5 (2.5-4.0cm) PWs1.0 cm Normal left ventricular chamber size, systolic function and wall motion. Left ventricular ejection fraction estimated to be 55-60 %. No evidence of left ventricular hypertrophy. No evidence of pericardial effusion. All other cardiac chamber sizes are within normal limits. Normal appearing aortic, mitral, pulmonic and tricuspid valves. Mitral annulus and aortic root calcification. IVC is normal in size with physiological collapse. A color flow and spectral Doppler study was performed and revealed: No aortic insufficiency. No mitral regurgitation. Normal left ventricular diastolic function. No tricuspid regurgitation. Tricuspid systolic velocities suggests peak right ventricular systolic pressure of 10 mmHg. No pulmonic regurgitation present.
== END 2018-11-03 13:19 | disposition home or self-care (01) | DRG 918 ==
LOC: EDBD 22:51 → EMR 23:44 → 2E 11-01 01:08 → EDBEDREQ 11-01 03:27 → 2E 11-01 05:09
DX: T39.1X2A Poisoning by 4-Aminophenol derivatives, intentional self-harm, initial encounter (principal); N39.0 Urinary tract infection, site not specified; Y92.009 Unspecified place in unspecified non-institutional (private) residence as the place of occurrence of the external cause; F32.9 Major depressive disorder, single episode, unspecified; F43.20 Adjustment disorder, unspecified; I44.1 Atrioventricular block, second degree; F60.3 Borderline personality disorder
CPT/HCPCS: 36415; 80053; 80307; 80329; 81003; 81025; 82977; 83735; 84100; 84550; 85007; 85025; 93005; 93306; 96361; 96365; 96366; 96367; 96368; 96375; 96376; 99291; J2405